=== PATIENT | female | born 1985 | race Caucasian/White ===

== ENCOUNTER → 2020-04-30 | Outpatient (REF) | payer OTHER ==
[~2020-04-30] MED LIST: MAPA500T2 PO; MOTR200T44 PO; STUATAB PO
[2020-04-30 21:56] LABS: APPEARANCE, URINE CLEAR (CLEAR); BACTERIA, URINE AUTO 2+ (NEGATIVE); BILIRUBIN, URINE AUTO NEGATIVE (NEGATIVE); BLOOD, URINE BLOOD 3+ (NEGATIVE); COLOR, URINE RED (YELLOW); GLUCOSE, URINE (UA) AUTO NEGATIVE (NEGATIVE); KETONE, URINE AUTO NEGATIVE (NEGATIVE); LEUKOCYTE ESTERASE, URINE AUTO 3+ (NEGATIVE); NITRITE, URINE AUTO NEGATIVE (NEGATIVE); PROTEIN, URINE AUTO 1+ mg/dL (NEGATIVE); RBC, URINE AUTO 4 /HPF (0-3); SQUAMOUS EPITHELIAL CELL UR AU 0 /HPF (0-6); UROBILINOGEN, URINE AUTO 0.2 mg/dL (0.0-2.0); WBC, URINE AUTO 13 /HPF (0-3)
== END ==
LOC: M LAB REF 21:46
PROVIDERS: ATTEND Physician Assistant Medical
DX: N39.0 Urinary tract infection, site not specified (principal)

== ENCOUNTER → 2021-01-30 | Outpatient (REF) | payer OTHER ==
[2021-01-30 14:00] LABS: HEMOGLOBIN 14.1 g/dl (12.0-15.5); MEAN CORPUSCULAR HEMOGLOBIN 28.4 pg (27.0-33.0); MEAN CORPUSCULAR VOLUME 88.5 fl (80.0-96.0); PLATELET COUNT, AUTOMATED 269 10^3/uL (150-450); RED BLOOD COUNT 4.97 10^6/uL (4.00-5.40); WHITE BLOOD COUNT 9.6 10^3/uL (4.0-10.0)
[2021-01-30 14:21] LABS: HEMOGLOBIN A1c 5.2 %
[2021-01-30 15:11] LABS: HEPATITIS C VIRUS ABY INDEX < 0.0 INDEX (<0.8); HIV 1&2 SCREEN CENTAUR NEGATIVE (NEGATIVE)
== END ==
LOC: M PLALAB 10:20
PROVIDERS: ATTEND Advanced Practice Midwife
DX: Z36.89 Encounter for other specified antenatal screening (principal); Z3A.08 8 weeks gestation of pregnancy

== ENCOUNTER → 2021-04-18 | Outpatient (CLI) | payer OTHER ==
--- NOTE | 2021-04-18 10:25 | REP ---
INDICATION: ANATOMY. COMPARISON: None. TECHNIQUE: Transabdominal obstetric sonography. FINDINGS: Scanning through the gravid uterus demonstrates a viable single intrauterine gestation in transverse lie. motion is observed and heart rate is recorded at 150 beats per minute. A fundal placenta is seen, grade 1, without evidence of placenta previa. Closed cervical length is measured at 4.6 cm transabdominally. No extrauterine abnormality is observed. Amniotic fluid is subjectively normal. No anomaly is seen. The following anatomic structures are identified and felt to be sonographically unremarkable: cranium, choroid plexus, cavum, cerebellum and posterior fossa, face and profile, lungs, diaphragm, left-sided stomach, abdominal wall cord insertion, three-vessel umbilical cord, kidneys and bladder, spine, and upper and lower extremities. The four-chamber heart and outflow tract views are less than optimally achieved due to positioning. Biometry chart: BPD 4.6 cm, 19 weeks 6 days Head circumference 17.1 cm, 19 weeks 5 days Abdominal circumference 14.2 cm, 19 weeks 4 days Femur length 3.0 cm, 19 weeks 2 days Humeral length 3.0 cm, 19 weeks 6 days HC AC ratio normal 1.20 Cephalic index normal 0.74 Estimated weight 294 g, 0 lb 10 oz, 25th percentile for 19 weeks 6 days IMPRESSION: Viable single intrauterine gestation at 19 weeks 5 days by today's composite sonographic criteria. JAMA by today's sonography September 07, 2021. No complication identified. Expected gestational age estimate from known JAMA of 06 September 2021 is 19 weeks 6 days. Four-chamber heart and outflow tract views less than optimally seen. <Electronically signed by Beni Winn > 04/18/21 1027
== END ==
LOC: M WHC 08:26
PROVIDERS: ATTEND Advanced Practice Midwife
DX: Z36.3 Encounter for antenatal screening for malformations (principal); Z3A.19 19 weeks gestation of pregnancy

== ENCOUNTER → 2021-05-28 | Outpatient (CLI) | payer OTHER ==
--- NOTE | 2021-05-28 14:44 | REP ---
INDICATION: F/U ANATOMY HEART COMPARISON: 04/18/2021 TECHNIQUE: Transabdominal obstetrical ultrasound with color Doppler evaluation. FINDINGS: Examination demonstrates a single live intrauterine in breech presentation. motion is identified by technologist. Placenta is noted fundal and grade 2 without evidence for placenta previa or abruption. Amniotic fluid volume is normal. Cervix measures 5.0 cm in length and appears closed.. Selected gestational age: 25 weeks 4 days with JAMA 09/06/2021. Gestational age by current measurements 25 weeks 1 day with JAMA 09/09/2021. FHR equals 134 beats per minute. Estimated weight 749 grams (17thpercentile). Anatomical assessment demonstrates normal structures including four-chamber heart/ventricular outflow tracts. Calcification within the cardiac ventricle likely prominent chordae tendineae. IMPRESSION: Single live intrauterine in breech presentation demonstrating appropriate estimated weight. In conjunction with prior examination anatomical assessment is essentially complete and normal. Prominent chordae tendineae is suspected. <Electronically signed by Emmanuel Turner > 05/28/21 [id number]
== END ==
LOC: M WHC 10:19
PROVIDERS: ATTEND Obstetrics & Gynecology
DX: Z36.89 Encounter for other specified antenatal screening (principal); Z3A.25 25 weeks gestation of pregnancy

== ENCOUNTER → 2021-07-03 | Outpatient (CLI) | payer OTHER, SELFPAY ==
[2021-07-03 15:25] LABS: HEMATOCRIT 37.1 % (36.0-47.0); HEMOGLOBIN 12.2 g/dl (12.0-15.5); MEAN CORPUSCULAR HEMOGLOBIN 29.1 pg (27.0-33.0); MEAN CORPUSCULAR HGB CONC 32.9 g/dl (32.0-36.5); MEAN CORPUSCULAR VOLUME 88.5 fl (80.0-96.0); PLATELET COUNT, AUTOMATED 173 10^3/uL (150-450); RED BLOOD COUNT 4.19 10^6/uL (4.00-5.40); WHITE BLOOD COUNT 12.8 10^3/uL (4.0-10.0)
[2021-07-03 17:15] LABS: GC DNA AMPLIFICATION NEGATIVE (NEGATIVE)
== END ==
LOC: M PLALAB 11:56
PROVIDERS: ATTEND Advanced Practice Midwife
DX: Z34.92 Encounter for supervision of normal pregnancy, unspecified, second trimester (principal); Z3A.25 25 weeks gestation of pregnancy

== ENCOUNTER 2021-07-14 20:07 | Inpatient (IN) | payer OTHER ==
[~2021-07-14] VITALS: Ht 177.8 cm; Wt 113.9 kg
[2021-07-14 20:38] VITALS: BP 178/100
--- OUTSIDE RECORDS SUMMARY | 2021-07-14 20:47 | CCD ---
Author Author [facility] Organization [facility] Address Unknown Phone Unavailable Care Team Providers Care Tooth Clerk Name Role Phone Pietro Kumar Unavailable PROBLEMS Type Condition ICD9-CM Code [id number] Code Onset Dates Condition S tatus W/U Status Risk SNOMED Code Notes Problem Supervision of other normal Z34.80 Ac tive confirm [id number] ALLERGIES Allergen (clinical drug ingredient) Drug/Non Drug Allergy do cumented on EMR Reaction Allergy Type Onset Date Status Sulfasalazine Sulfa Antibiotics Hives Drug Allergy Ac tive ENCOUNTERS from 1985 to 2021-07-02 Encounter Location Date Provider Diagnosis [facility] [address] [place] [address] [place] [address] Jun, Pietro Kumar IMMUNIZATIONS No Information SOCIAL HISTORY Tobacco Use: Social History Observation Description Date Details (start date - stop date) Never Smoker Sex Assigned At : Social History Observation Description Sex Assigned At Unknown Alcohol Screening: Question Answer Notes Did you have a drink containing alcohol in the past year? No Points 0 Interpretation Negative Tobacco Use: Question Answer Notes Are you a: never smoker REASON FOR REFERRAL No Information VITAL SIGNS No information MEDICATIONS Medication SIG (Take, Route, Frequency, Duration) Notes Start Da te End Date Status Pepcid 40 MG 1 tablet at bedtime Orally Once a day for 30 day(s) Jun, Active 28-0.8 MG 1 tablet Orally Once a day Active PROCEDURES No Information RESULTS No Results REASON FOR VISIT appt MEDICAL (GENERAL) HISTORY Type Description Date Hospitalization History Childbirth Goals Section No Information Health Concerns No Information MEDICAL EQUIPMENT No Information MENTAL STATUS No Information FUNCTIONAL STATUS No Information ASSESSMENTS No Information PLAN OF TREATMENT Medication Medication Name Sig Start Date Stop Date Pepcid 40 MG 1 tablet at bedtime Orally Once a day for 30 day (s) Jun, Next Appt Details Provider Name:Latesha Mcfadden, 2021-07-16 0 9:40:00 AM, [address] [facility], , [place], [address], Insurance Providers Payer Name Payer Address Payer Phone Insured Name Patient Relati onship to Insured Coverage Start Date Coverage End Date [facility] COMMUNITY PLAN [facility] [address] [facility] [address] [phone] MARIA L HERNANDEZ self
--- OUTSIDE RECORDS SUMMARY | 2021-07-14 20:47 | CCD ---
Author Author [facility] Organization [facility] [employer] [facility] Address Unknown Phone Unavailable Care Team Providers Care Genetics Physician Name Role Phone Pietro Kumar Unavailable PROBLEMS Type Condition ICD9-CM Code [id number] Code Onset Dates Condition S tatus W/U Status Risk SNOMED Code Notes Problem Supervision of other normal Z34.80 Ac tive confirm [id number] ALLERGIES Allergen (clinical drug ingredient) Drug/Non Drug Allergy do cumented on EMR Reaction Allergy Type Onset Date Status Sulfasalazine Sulfa Antibiotics Hives Drug Allergy Ac tive ENCOUNTERS from 1985 to 2021-07-12 Encounter Location Date Provider Diagnosis [facility] [address] [place] [address] [place] [address] Jun, Pietro Kumar Encounter for superv ision of other normal in third trimester Z34.83 and 30 weeks gestation of Z3A.30 IMMUNIZATIONS No Information SOCIAL HISTORY Tobacco Use: [...] REASON FOR REFERRAL No Information VITAL SIGNS Weight 236.4 lbs Jun, Height 69 in Jun, BMI 34.91 kg/m2 Jun, Blood pressure systolic 118 mm Hg Jun, Blood pressure diastolic 76 mm Hg Jun, MEDICATIONS Medication SIG (Take, Route, Frequency, Duration) Notes Start Da te End Date Status Pepcid 40 MG 1 tablet at bedtime Orally Once a day for 30 day(s) Jun, Active 28-0.8 MG 1 tablet Orally Once a day Active PROCEDURES No Information RESULTS No Results REASON FOR VISIT 4 WK PN MEDICAL (GENERAL) HISTORY Type Description Date Hospitalization History Childbirth Goals Section No Information Health Concerns No Information MEDICAL EQUIPMENT No Information MENTAL STATUS No Information FUNCTIONAL STATUS No Information ASSESSMENTS Encounter Date Diagnosis Assessment Notes Treatment Notes Treatm ent Clinical Notes Jun, 30 weeks gestation of (ICD-10 - Z3A.30 ) Jun, Encounter for supervision of other normal in third trimester (ICD-10 - Z34.83) PLAN OF TREATMENT Medication Medication Name Sig Start Date Stop Date Pepcid 40 MG 1 tablet at bedtime Orally Once a day for 30 day (s) Jun, Next Appt Details Provider Name:Latesha Mcfadden, 2021-07-16 0 9:40:00 AM, [address] [facility], , [place], [address], Insurance Providers Payer Name Payer Address Payer Phone Insured Name Patient Relati onship to Insured Coverage Start Date Coverage End Date [facility] COMMUNITY PLAN [facility] [address] [facility] [phone] MARIA L HERNANDEZ self
--- OUTSIDE RECORDS SUMMARY | 2021-07-14 20:47 | CCD ---
Author Author [employer] [facility] Organization [facility] Address Unknown Phone Unavailable Care Team Providers Care Shopper Name Role Phone Talia Boyd Unavailable PROBLEMS Type Condition ICD9-CM Code [id number] Code Onset Dates Condition S tatus W/U Status Risk SNOMED Code Notes Problem Supervision of other normal Z34.80 Ac tive confirm [id number] ALLERGIES Allergen (clinical drug ingredient) Drug/Non Drug Allergy do cumented on EMR Reaction Allergy Type Onset Date Status Sulfa Hives Non Drug Allergy Active ENCOUNTERS from 1985 to 2021-04-19 Encounter Location Date Provider Diagnosis [facility] [address] [place] [address] [place] [id number] Apr, [facility] IMMUNIZATIONS No Information SOCIAL HISTORY Tobacco Use: Social History Observation Description Date Details (start date - stop date) Never Smoker Sex Assigned At : Social History Observation Description Sex Assigned At Unknown Tobacco Use: Question Answer Notes Are you a: never smoker REASON FOR REFERRAL No Information VITAL SIGNS No information MEDICATIONS Medication SIG (Take, Route, Frequency, Duration) Notes Start Da te End Date Status 28-0.8 MG 1 tablet Orally Once a day Active PROCEDURES No Information RESULTS No Results REASON FOR VISIT note Goals Section No Information Health Concerns No Information MEDICAL EQUIPMENT No Information MENTAL STATUS No Information FUNCTIONAL STATUS No Information ASSESSMENTS No Information PLAN OF TREATMENT Next Appt Details Provider Name:Анна Cadet, 2021-04-11 1 09:30:00 AM, [address] [facility], , [place], [address], Insurance Providers Payer Name Payer Address Payer Phone Insured Name Patient Relati onship to Insured Coverage Start Date Coverage End Date [facility] COMMUNITY PLAN [facility] [address] [facility] [phone] MARIA L HERNANDEZ self
--- OUTSIDE RECORDS SUMMARY | 2021-07-14 20:47 | CCD ---
Author Author [employer] [facility] Organization [employer] [facility] Address Unknown Phone Unavailable Care Team Providers Care Rn Orthopaedic Name Role Phone Talia Boyd Unavailable PROBLEMS Type Condition ICD9-CM Code NHT22-AM Code Onset Dates Condition S tatus W/U Status Risk SNOMED Code Notes Problem Supervision of other normal Z34.80 Ac tive confirm [id number] ALLERGIES Allergen (clinical drug ingredient) Drug/Non Drug Allergy do cumented on EMR Reaction Allergy Type Onset Date Status Sulfasalazine Sulfa Antibiotics Hives Drug Allergy Ac tive ENCOUNTERS from 1985 to 2021-05-30 Encounter Location Date Provider Diagnosis [facility] [address] [place] [address] [place] [address] May, Talia Boyd 25 weeks gestatio n of Z3A.25 and Elderly multigravida in second trimester O09.522 IMMUNIZATIONS No Information SOCIAL HISTORY Tobacco Use: Social History Observation Description Date Details (start date - stop date) Never Smoker Sex Assigned At : Social History Observation Description Sex Assigned At Unknown Tobacco Use: Question Answer Notes Are you a: never smoker REASON FOR REFERRAL No Information VITAL SIGNS Weight 220 lbs May, Weight-kg 99.79 kg May, Height 69 in May, BMI 32.488 kg/m2 May, Blood pressure systolic 120 mm Hg May, Blood pressure diastolic 70 mm Hg May, MEDICATIONS Medication SIG (Take, Route, Frequency, Duration) Notes Start Da te End Date Status 28-0.8 MG 1 tablet Orally Once a day Active PROCEDURES No Information RESULTS No Results REASON FOR VISIT 4 WK PN Goals Section No Information Health Concerns No Information MEDICAL EQUIPMENT No Information MENTAL STATUS No Information FUNCTIONAL STATUS No Information ASSESSMENTS Encounter Date Diagnosis Assessment Notes Treatment Notes Treatm ent Clinical Notes May, 25 weeks gestation of (ICD-10 - Z3A.25 ) May, Elderly multigravida in second trimester (ICD-10 - O09.522) PLAN OF TREATMENT Treatment Notes Test Name Order Date CBC - Complete Blood Count 2021-05-28 Type and Screen (D Rh Antibody Screen) 2021-05-28 Glucose Challenge Test 1 Hour 2021-05-28 AB SCREEN (INDIRECT UZMA)GEL Antibody Screen 2021-05 CHLAMYDIA & GC DNA AMPLIFICAT 2021-05-28 Next Appt Details 3-4 wks Reason:- Routine follow up Provider Name:Анна Sorensenyosvany, 2021-06-10 1 10:00:00 AM, [address] [facility], , [place], [address], Follow Up:3-4 wks- Routine follow up Insurance Providers Payer Name Payer Address Payer Phone Insured Name Patient Relati onship to Insured Coverage Start Date Coverage End Date [facility] COMMUNITY PLAN [facility] [address] [facility] [phone] MARIA L HERNANDEZ self
--- OUTSIDE RECORDS SUMMARY | 2021-07-14 20:47 | CCD ---
Author Author [facility] Organization [employer] [facility] [facility] Address Unknown Phone Unavailable Care Team Providers Care Security Systems Administrator Name Role Phone Talia Boyd Unavailable PROBLEMS Type Condition ICD9-CM Code FYE89-LO Code Onset Dates Condition S tatus W/U Status Risk SNOMED Code Notes Problem Supervision of other normal Z34.80 Ac tive confirm [id number] ALLERGIES Allergen (clinical drug ingredient) Drug/Non Drug Allergy do cumented on EMR Reaction Allergy Type Onset Date Status Sulfa Hives Non Drug Allergy Active ENCOUNTERS from 1985 to 2021-05-21 Encounter Location Date Provider Diagnosis [facility] [address] [place] [address] [place] [address] Mar, Talia Boyd 16 weeks gestatio n of Z3A.16 and Elderly multigravida in second trimester O09.522 IMMUNIZATIONS No Information SOCIAL HISTORY Tobacco Use: Social History Observation Description Date Details (start date - stop date) Never Smoker Sex Assigned At : Social History Observation Description Sex Assigned At Unknown Tobacco Use: Question Answer Notes Are you a: never smoker REASON FOR REFERRAL No Information VITAL SIGNS Weight 210 lbs Mar, Weight-kg 95.25 kg Mar, Height 69 in Mar, BMI 31.012 kg/m2 Mar, Blood pressure systolic 110 mm Hg Mar, Blood pressure diastolic 62 mm Hg Mar, MEDICATIONS Medication SIG (Take, Route, Frequency, Duration) Notes Start Da te End Date Status 28-0.8 MG 1 tablet Orally Once a day Active PROCEDURES No Information RESULTS Component Value Reference Range WWBC OBS COMPLETE US Reviewed date:05/17/2021 07:04:14 Interpretation: Performing Lab:[facility],[address]], ,[place] [address] REASON FOR VISIT 4 wk pn Goals Section No Information Health Concerns No Information MEDICAL EQUIPMENT No Information MENTAL STATUS No Information FUNCTIONAL STATUS No Information ASSESSMENTS Encounter Date Diagnosis Assessment Notes Treatment Notes Treatm ent Clinical Notes Mar, 16 weeks gestation of (ICD-10 - Z3A.16 ) Mar, Elderly multigravida in second trimester (ICD-10 - O09.522) PLAN OF TREATMENT Next Appt Details 4 Weeks Reason:- Routine follow up Provider Name:Talia Boyd, 2021-05-28 09:00:00 AM, [address] [facility], , [place], [address], Follow Up:4 Weeks- Routine follow up Insurance Providers Payer Name Payer Address Payer Phone Insured Name Patient Relati onship to Insured Coverage Start Date Coverage End Date [facility] COMMUNITY PLAN [facility] [address] [facility] [phone] MARIA L HERNANDEZ self
--- OUTSIDE RECORDS SUMMARY | 2021-07-14 20:47 | CCD ---
Author Author [employer] Organization [employer] [facility] Address Unknown Phone Unavailable Care Team Providers Care Public Safety Teacher Name Role Phone Анна Cadet Unavailable PROBLEMS Type Condition ICD9-CM Code LPM14-SK Code Onset Dates Condition S tatus W/U Status Risk SNOMED Code Notes Problem Supervision of other normal Z34.80 Ac tive confirm [id number] ALLERGIES Allergen (clinical drug ingredient) Drug/Non Drug Allergy do cumented on EMR Reaction Allergy Type Onset Date Status Sulfa Hives Non Drug Allergy Active ENCOUNTERS from 1985 to 2021-05-15 Encounter Location Date Provider Diagnosis [facility] [address] [place] [address] [place] [address] Apr, Анна Cadet Elderly multigravida in second trimester O09.522 and 21 weeks gestation of Z3A.21 IMMUNIZATIONS No Information SOCIAL HISTORY Tobacco Use: Social History Observation Description Date Details (start date - stop date) Never Smoker Sex Assigned At : Social History Observation Description Sex Assigned At Unknown Tobacco Use: Question Answer Notes Are you a: never smoker REASON FOR REFERRAL No Information VITAL SIGNS Weight 219 lbs Apr, Weight-kg 99.34 kg Apr, Height 69 in Apr, BMI 32.341 kg/m2 Apr, Blood pressure systolic 122 mm Hg Apr, Blood pressure diastolic 74 mm Hg Apr, MEDICATIONS Medication SIG (Take, Route, Frequency, Duration) Notes Start Da te End Date Status 28-0.8 MG 1 tablet Orally Once a day Active PROCEDURES No Information RESULTS No Results REASON FOR VISIT 4 wk pn Goals Section No Information Health Concerns No Information MEDICAL EQUIPMENT No Information MENTAL STATUS No Information FUNCTIONAL STATUS No Information ASSESSMENTS Encounter Date Diagnosis Assessment Notes Treatment Notes Treatm ent Clinical Notes Apr, Elderly multigravida in second trimester (ICD-10 - O09.522) Apr, 21 weeks gestation of (ICD-10 - Z3A.21 ) PLAN OF TREATMENT Treatment Notes Test Name Order Date WWBC OBS FOLLOW UP OR REPEAT 2021-04-30 Next Appt Details 4 Weeks Reason:Routine Provider Name:Talia Wheatleyronald, 2021-05-28 09:00:00 AM, [address] [facility], , [place], [address], Follow Up:4 WeeksRoutine Insurance Providers Payer Name Payer Address Payer Phone Insured Name Patient Relati onship to Insured Coverage Start Date Coverage End Date [facility] COMMUNITY PLAN [facility] [address] [facility] [phone] MARIA L HERNANDEZ self
--- OUTSIDE RECORDS SUMMARY | 2021-07-14 20:48 | CCD ---
Author Author [facility] Organization [facility] Address Unknown Phone Unavailable Support Name Relationship Address Phone SELF Next Of Kin Unknown Unavailable SALDANA THEODORA Next Of Kin [address] [facility] [address] [place] [address] LOW Next Of Kin [address] [facility] [address] [place] [address] BRODIE HERNANDEZ Next Of Kin [address] [facility] [address] [place] [address] SHANAYETHEODORA ECON [address] [facility] [address] [place] [address] Unavailable Re-disclosure Warning The records that you are about to access may contain information from federally-assisted alcohol or drug abuse programs. If such information is present, then the following federally mandated warning applies: This information has been disclosed to you from records protected by federal confidentiality rules (42 CFR part 2). The federal rules prohibit you from making any further disclosure of this information unless further disclosure is expressly permitted by the written consent of the person to whom it pertains or as otherwise permitted by 42 CFR part 2. A general authorization for the release of medical or other information is NOT sufficient for this purpose. The Federal rules restrict any use of the information to criminally investigate or prosecute any alcohol or drug abuse patient.The records that you are about to access may contain highly sensitive health information, the redisclosure of which is protected by Article 27-F of the [facility] Public Health law. If you continue you may have access to information: Regarding HIV / AIDS; Provided by facilities licensed or operated by the [facility] Office of Mental Health; or Provided by the [facility] Office for People With Developmental Disabilities. If such information is present, then the following [facility] mandated warning applies: This information has been disclosed to you from confidential records which are protected by state law. State law prohibits you from making any further disclosure of this information without the specific written consent of the person to whom it pertains, or as otherwise permitted by law. Any unauthorized further disclosure in violation of state law may result in a fine or correction sentence or both. A general authorization for the release of medical or other information is NOT sufficient authorization for further disc losure. Encounters Encounter Providers Location Date Indications Data Source(s ) ( ESTOB) [facility] Est OB [address] [place] [address] 07/01/2021 12:00:00 AM EST eCW1 ([facility]) Unknown [address] [facility] [address] 07/01/2021 12:00:00 AM EST eCW1 ([facility]) ( ESTOB) [facility] Est [facility] [address] [place] [address] 05/28/2021 12:00:00 AM EDT eCW1 ([facility]) ( ESTOB) [facility] Est [address] [place] [address] 04/30/2021 12:00:00 AM EDT eCW1 ([facility]) Unknown [address] [facility] [address] 04/19/2021 12:00:00 AM EDT eCW1 ([facility]) ( ESTOB) [facility] Est OB [address] [place] [address] 03/28/2021 12:00:00 AM EDT eCW1 ([facility]) ( ESTOB) [facility] Est OB [address] [place] [address] 02/28/2021 12:00:00 AM EDT eCW1 ([facility]) ( NEWOB) [facility] New OB Visit [address] [place] [address] 01/30/2021 12:00:00 AM EDT eCW1 ([facility]) Immunizations Vaccine Date Status Description Data Source(s) COVID-19 VACC, MRNA(PFIZER)/PF 01/16/2021 12:00:00 AM EDT completed [facility] COVID-19 VACCINE Pfizer 01/16/2021 12:00:00 AM EDT completed [facility] Vaccine Series Complete: YESThis Data wa s Submitted to [facility] Via [employer]. COVID-19 VACC, MRNA(PFIZER)/PF 12/26/2020 12:00:00 AM EDT completed [facility] COVID-19 VACCINE Pfizer 12/26/2020 12:00:00 AM EDT completed [facility] Vaccine Series Complete: NOThis Data was Submitted to [facility] Via [employer]. Medications Medication Brand Name Start Date Product Form Dose Route Admi nistrative Instructions Pharmacy Instructions Status Indications Reaction Description Data Source(s) Famotidine 40 MG Oral Tablet [Pepcid] Pepcid 40 MG Pepcid 40 MG 07/01/2021 12:00:00 AM EST 1.0 {tablet_at_bedtime} active Pepcid 40 MG eCW1 ([facility]) Famotidine 40 MG Oral Tablet [Pepcid] Pepcid 40 MG Pepcid 40 MG 07/01/2021 12:00:00 AM EST 1.0 {tablet_at_bedtime} active Pepcid 40 MG eCW1 ([facility]) Famotidine 40 MG Oral Tablet FAMOTIDINE 07/01/2021 12:00:00 AM EST tab let 30 TAKE ONE TABLET BY MOUTH AT BEDTIME TAKE ONE TABLET BY MOUTH AT BEDTIME SOLD: 07/01/2021 [facility] Insurance Providers Payer name Policy type / Coverage type Policy ID Covered democrat ID Covered democrat's relationship to cartagena Policy [place] Plan Information [facility] [id number] SP [id number] SELF PAY ONLY [id number] SP [id number] [facility] [id number] SP [id number] [facility] [id number] SP [id number] [facility] [id number] SP [id number] [facility] [id number] SP [id number] [facility] [id number] SP [id number] Problems, Conditions, and Diagnoses Code Display Name Description Problem Type Effective Dates Data Source(s) Z34.80 care Supervision of other normal Rios greer 01/30/2021 12:00:00 AM EDT eCW1 ([facility]) Surgeries/Procedures No Information Results ID Date Data Source WWBC OBS COMPLETE US 04/18/2021 12:00:00 AM EDT eCW1 ([facility]) Name Value Range Interpretation Code Description Data Valerie rce(s) Supporting Document(s) WWBC OBS COMPLETE US eCW1 ([facility]) ID Date Data Source HBSAG 01/30/2021 12:00:00 AM EDT eCW1 ([facility]) Name Value Range Interpretation Code Description Data Valerie rce(s) Supporting Document(s) NEGATIVE NEGATIVE HBsAg eCW1 ([facility]) ID Date Data Source URINE CULTURE 01/30/2021 12:00:00 AM EDT eCW1 ([facility]) Name Value Range Interpretation Code Description Data Valerie rce(s) Supporting Document(s) URINE CULTURE eCW1 ([facility]) ID Date Data Source RUBELLA IMMUNE STATUS IgG 01/30/2021 12:00:00 AM EDT eCW1 ([facility]) Name Value Range Interpretation Code Description Data Valerie rce(s) Supporting Document(s) IMMUNE IMMUNE RUBELLA IgG QUALITATIVE eCW1 ( [facility]) ID Date Data Source SYPHILIS ANTIBODY (RPR SCREEN) 01/30/2021 12:00:00 AM EDT eC W1 ([facility]) Name Value Range Interpretation Code Description Data Valerie rce(s) Supporting Document(s) NONREACTIVE NONREACTIVE SYPHILIS eCW1 ([facility]) ID Date Data Source [id number] 01/30/2021 12:00:00 AM EDT eCW1 ([facility]) Name Value Range Interpretation Code Description Data Valerie rce(s) Supporting Document(s) HIV 1&2 ANTIBODY SCREEN eCW1 ( [facility]) ID Date Data Source [id number] 01/30/2021 12:00:00 AM EDT eCW1 ([facility]) Name Value Range Interpretation Code Description Data Valerie rce(s) Supporting Document(s) Hemoglobin A1c/Hemoglobin.total in Blood 5.2 HEMOGLOBIN A1c eCW1 ([facility]) ID Date Data Source HEPATITIS C ANTIBODY INDEX 01/30/2021 12:00:00 AM EDT eCW1 ( [facility]) Name Value Range Interpretation Code Description Data Valerie rce(s) Supporting Document(s) < 0.0 <0.8 HEPATITIS C VIRUS SELINA IND EX eCW1 ([facility]) ID Date Data Source CBC - Complete Blood Count 01/30/2021 12:00:00 AM EDT eCW1 ( [facility]) Name Value Range Interpretation Code Description Data Valerie rce(s) Supporting Document(s) 4.97 4.00-5.40 RED BLOOD COUNT eCW1 (On license of [facility]) 9.6 4.0-10.0 WHITE BLOOD COUNT eCW1 ([facility]) 14.1 12.0-15.5 HEMOGLOBIN eCW1 ([facility]) 32.0 32.0-36.5 MEAN CORPUSCULAR HGB CONC eCW1 ([facility]) 28.4 27.0-33.0 MEAN CORPUSCULAR HEMOGLOB IN eCW1 ([facility]) 88.5 80.0-96.0 MEAN CORPUSCULAR VOLUME e CW1 ([facility]) 44.0 36.0-47.0 HEMATOCRIT eCW1 ([facility]) 269 150-450 PLATELET COUNT, AUTOMATED eCW1 ([facility]) 12.5 11.5-14.5 RED CELL DISTRIBUTION WID TH eCW1 ([facility]) ID Date Data Source Type and Screen Prenatal1 01/30/2021 12:00:00 AM EDT eCW1 ([facility]) Name Value Range Interpretation Code Description Data Valerie rce(s) Supporting Document(s) NEGATIVE AB SCREEN PNP1 GEL (VIS) eCW1 ([facility]) ID Date Data Source [id number] 08/17/2020 12:00:00 AM EST [facility] Name Value Range Interpretation Code Description Data Valerie rce(s) Supporting Document(s) SARS coronavirus 2 RNA [Presence] in Res piratory specimen by MARTIN with probe detection NEGATIVE [facility] and reported by [facility]. ID Date Data Source [id number] 08/17/2020 12:00:00 AM EST [facility] Name Value Range Interpretation Code Description Data Valerie rce(s) Supporting Document(s) Carestart Rapid COVID Antigen Test Negative [facility] This lab was reported by Fredi hebert. Procedure Social History Code Duration Value Status Description Data Source(s ) Smoking 07/01/2021 12:00:00 AM EST Never Smoker completed Never S moker eCW1 ([facility]) Smoking 07/01/2021 12:00:00 AM EST Never Smoker completed Never S moker eCW1 ([facility]) Smoking 05/29/2021 12:00:00 AM EDT Never Smoker completed Never S moker eCW1 ([facility]) Smoking 05/17/2021 12:00:00 AM EDT Never Smoker completed Never S moker eCW1 ([facility]) Smoking 04/25/2021 12:00:00 AM EDT Never Smoker completed Never S moker eCW1 ([facility]) Smoking 03/28/2021 12:00:00 AM EDT Never Smoker completed Never S moker eCW1 ([facility]) Smoking 02/27/2021 12:00:00 AM EDT Never Smoker completed Never S moker eCW1 ([facility]) Smoking 01/30/2021 12:00:00 AM EDT Never Smoker completed Never S moker eCW1 ([facility]) Vital Signs ID Date Data Source UNK Name Value Range Interpretation Code Description Data Source(s) Body weight 236.4 [lb_av] 236.4 [lb_av] eCW1 ([facility]) Body height 69 [in_i] 69 [in_i] W1 ([facility]) Body mass index (BMI) [Ratio] 34.91 kg/m2 34.91 kg/m2 [facility] ([facility]) Systolic blood pressure 118 mm[Hg] 118 mm[Hg] e CW1 ([facility]) Diastolic blood pressure 76 mm[Hg] 76 mm[Hg] W1 ([facility]) Body weight 220 [lb_av] 220 [lb_av] eCW1 ([facility]) Body weight 99.79 kg 99.79 kg eCW1 ([facility]) Body height 69 [in_i] 69 [in_i] eCW1 ([facility]) Body mass index (BMI) [Ratio] 32.488 kg/m2 32.4 88 kg/m2 eCW1 ([facility]) Systolic blood pressure 120 mm[Hg] 120 mm[Hg] e CW1 ([facility]) Diastolic blood pressure 70 mm[Hg] 70 mm[Hg] eCW1 ([facility]) Body weight 219 [lb_av] 219 [lb_av] eCW1 ([facility]) Body weight 99.34 kg 99.34 kg eCW1 ([facility]) Body height 69 [in_i] 69 [in_i] eCW1 ([facility]) Body mass index (BMI) [Ratio] 32.341 kg/m2 32.3 41 kg/m2 eCW1 ([facility]) Systolic blood pressure 122 mm[Hg] 122 mm[Hg] e CW1 ([facility]) Diastolic blood pressure 74 mm[Hg] 74 mm[Hg] eCW1 ([facility]) Body weight 210 [lb_av] 210 [lb_av] eCW1 ([facility]) Body weight 95.25 kg 95.25 kg eCW1 ([facility]) Body height 69 [in_i] 69 [in_i] eCW1 ([facility]) Body mass index (BMI) [Ratio] 31.012 kg/m2 31.0 12 kg/m2 eCW1 ([facility]) Systolic blood pressure 110 mm[Hg] 110 mm[Hg] e CW1 ([facility]) Diastolic blood pressure 62 mm[Hg] 62 mm[Hg] eCW1 ([facility]) Body weight 206.8 [lb_av] 206.8 [lb_av] eCW1 ([facility]) Body weight 93.8 kg 93.8 kg eCW1 ([facility]) Body height 69 [in_i] 69 [in_i] eCW1 ([facility]) Body mass index (BMI) [Ratio] 30.539 kg/m2 30.5 39 kg/m2 eCW1 ([facility]) Systolic blood pressure 110 mm[Hg] 110 mm[Hg] e CW1 ([facility]) Diastolic blood pressure 68 mm[Hg] 68 mm[Hg] eCW1 ([facility]) Body weight 203.6 [lb_av] 203.6 [lb_av] eCW1 ([facility]) Body weight 92.35 kg 92.35 kg eCW1 ([facility]) Body height 69 [in_i] 69 [in_i] eCW1 ([facility]) Body mass index (BMI) [Ratio] 30.066 kg/m2 30.0 66 kg/m2 eCW1 ([facility]) Systolic blood pressure 108 mm[Hg] 108 mm[Hg] e CW1 ([facility]) Diastolic blood pressure 64 mm[Hg] 64 mm[Hg] eCW1 ([facility]) Patient Treatment Plan of Care Planned Activity Planned Date Details Description Data Source (s) Famotidine 40 MG Oral Tablet [Pepcid] 07/01/2021 12:00:00 AM EST eCW1 ([facility]) Famotidine 40 MG Oral Tablet [Pepcid] 07/01/2021 12:00:00 AM EST eCW1 ([facility])
[2021-07-14 21:00] VITALS: BP 178/100
[2021-07-14 21:15] VITALS: BP 196/99
[2021-07-14 21:43] LABS: HEMOGLOBIN 11.5 g/dl (12.0-15.5); MEAN CORPUSCULAR HGB CONC 33.8 g/dl (32.0-36.5); MEAN CORPUSCULAR VOLUME 85.9 fl (80.0-96.0); RED BLOOD COUNT 3.96 10^6/uL (4.00-5.40)
[2021-07-14 21:45] VITALS: BP 199/95
[2021-07-14 22:00] VITALS: BP 189/89
[2021-07-14 22:00] LABS: PLATELET COUNT, AUTOMATED 50 10^3/uL (150-450)
[2021-07-14] MEDS ORDERED: LABETALOL 100MG/20ML VIAL IV STA ×2 (22:19→22:56)
[2021-07-14 22:21] LABS: ALT/SGPT 166 U/L (12-78); BILIRUBIN,TOTAL 0.8 MG/DL (0.2-1.0); CREATININE FOR GFR 1.04 MG/DL (0.55-1.30); GLOMERULAR FILTRATION RATE > 60.0 (>60); LDH LACTATE DEHYDROGENASE 400 U/L (84-246); URIC ACID 7.3 MG/DL (2.6-6.0)
[2021-07-14] MEDS ORDERED: LR 500 ML IV ONE (22:40)
[2021-07-14] MEDS ORDERED: ROCURONIUM BROMIDE 50 MG/5 ML VIAL As Ordered ONE (22:54)
[2021-07-14] MEDS ORDERED: LIDOCAINE 2% 100MG/5ML SDV (FOR ANES.) As Ordered ONE (22:54)
[2021-07-14] MEDS ORDERED: SUCCINYLCHOLINE 100 MG/5 ML SYRINGE (J0330) As Ordered ONE (22:54)
[2021-07-14] MEDS ORDERED: MIDAZOLAM INJ 2MG/2ML VIAL (J2250 PER 1MG) As Ordered ONE (22:54)
[2021-07-14] MEDS ORDERED: fentaNYL 100 MCG/2 ML INJECTION (J3010) As Ordered ONE (22:54)
[2021-07-14] MEDS ORDERED: propofoL 200 MG/20 ML VIAL As Ordered ONE ×2 (22:54→23:50)
[2021-07-14] MEDS ORDERED: LACTATED RINGER'S 1000 ML IV STA (23:04)
[2021-07-14] MEDS ORDERED: ceFAZolin SOD 2 GM in IV 1 EA IV ONE (23:05)
[2021-07-14] MEDS ORDERED: LR 1,000 ML IV SCH (23:05)
[2021-07-14] MEDS ORDERED: ONDANSETRON 4MG/2ML VIAL As Ordered ONE (23:43)
[2021-07-14] MEDS ORDERED: ACETAMINOPHEN 1000MG 100ML IV BTL (OFIRMEV) (J0131 PER 10MG) As Ordered ONE (23:43)
[2021-07-14] MEDS ORDERED: METOCLOPRAMIDE INJ 10MG/2ML VIAL (J2765 PER 1) As Ordered ONE (23:50)
[2021-07-14] MEDS ORDERED: SUGAMMADEX SODIUM 500 MG/5 ML VIAL (BRIDION) As Ordered ONE (23:51)
[2021-07-14] MEDS ORDERED: OXYTOCIN INJ 10 UNITS/ML VIAL (J2590) As Ordered ONE (23:54)
[2021-07-15] VITALS (41 sets, daily range): BP systolic 125–165; BP diastolic 67–95
[2021-07-15] MEDS ORDERED: MAGNESIUM *L&D* 4GM/100ML BAG (40MG/ML) As Ordered ONE (00:09)
[2021-07-15] MEDS ORDERED: MORPHINE 2 MG/ML 1ML VIAL (J2270) IV PRN (00:35)
[2021-07-15] MEDS ORDERED: ONDANSETRON 4MG/2ML VIAL IV PRN ×3 (00:35→01:25)
[2021-07-15] MEDS ORDERED: RHOGAM 300 MCG (1500 IU) INJ (J2790) IM SCH (00:35)
[2021-07-15] MEDS ORDERED: SIMETHICONE 80MG CHEW TAB PO PRN (00:35)
[2021-07-15] MEDS ORDERED: OXYTOCIN DRIP 30 UNITS in IV 1 EA IV SCH (00:35)
[2021-07-15] MEDS ORDERED: MEASLES,MUMPS,RUBELLA VACCINE INJ (MMR-II) (90707) SC SCH (00:35)
[2021-07-15] MEDS ORDERED: DOCUSATE SODIUM 100MG CAPSULE PO PRN (00:35)
[2021-07-15] MEDS ORDERED: MAG Sulf (L&D) 4 GM/100 ML 4 GM in IV 1 EA IV ONE (00:40)
[2021-07-15 01:02] LABS: CORD GAS ABE A -1.7; CORD GAS HCO3 V 21.6 MEQ/L; CORD GAS O2 SAT A 31.5 %; CORD GAS O2 SAT V 61.2 %; CORD GAS PCO2 A 49.2 mmHg; CORD GAS PCO2 V 41.7 mmHg; CORD GAS PH A 7.323 UNITS; CORD GAS PH V 7.333 UNITS; CORD GAS PO2 A 15.6 mmHg; CORD GAS SBC A 21.5 MEQ/L; CORD GAS SBC V 20.3 MEQ/L; CORD GAS TCO2 A 26.5 MEQ/L; CORD GAS TCO2 V 22.9 MEQ/L
[2021-07-15] MEDS ORDERED: LR 1,000 ML IV SCH ×2 (01:25→17:50)
[2021-07-15] MEDS ORDERED: fentaNYL 100 MCG/2 ML INJECTION (J3010) IV PRN (01:25)
--- NOTE | 2021-07-15 01:33 | HPEPDOC ---
Obstetrical History & Physical General Date of Admission Jul 14, 2021 at 20:43 History of Present Illness 35 yo female at 32 2/7 weeks gestation by LMP c/w 9 week ultrasound (EDC=09/06/2020) presents to triage with generalized swelling in her hands, feet, and face for the past 2 days. She developed a severe headache over the last 24 hours that became worse. Headache did not respond to Tylenol. She also had vision changes including seeing spots in front of her eyes. Information Provided By: Patient Age: 35 : 5 Term: 2 Pre-term: 0 Abortions: 2 Livin Care Care: Good Care Dating Final EDC: Sep 06, 2021 Final EDC by: LMP, 1st trimester (US) Past Medical History Past Obstetrical History : Past Obstetrical History: Multigravida Past Medical History Medical History Ob Hx: 1 04/18/2013 37 2 days 6 9 Male NVD Epidural [facility] 2 05/13/2014 36 28 hours 7 10 Male NVD Epidural [facility] Med Hx: none surgical Hx: none Family History Significant Family History: No pertinent family hx Social History Marital Status: Other (engaged) Family situation: Spouse/partner home Psychosocial History: No pertinent psych hx * Smoker: non-smoker Drugs: denies Allergies Coded Allergies: Sulfa (Sulfonamide Antibiotics) (Verified Allergy, Mild, HIVES, 07/14/21) Medications Scheduled Multivit/Min/Pren/Fol Ac/Iron (Mendoza 28-0.8 mg) 1 Tab Tab, 1 TAB PO DAILY Scheduled PRN Acetaminophen (Mapap) 500 Mg Tab, 1,000 MG PO Q6HP PRN for PAIN SCALE 6-10 Ibuprofen (Motrin Ib) 200 Mg Tab, 600 MG PO Q6HP PRN for PAIN SCALE 6-10 Physical Examination Physical Examination GENERAL: Alert and oriented times three. BREAST: . ABDOMEN: Gravid and non-tender to touch. FETUS: Is vertex (VTX) by sterile vaginal examination (SVE), fetus is vertex (VTX) by Ronny. HEART RATE: Regular rate and rhythm. LUNGS: Clear to auscultation (CTA). EXTREMITIES: No edema. No clonus. Deep tendon reflexes (DTRs) + . Vital Signs/I&O Vital Signs Date Time Temp Pulse Resp B/P (MAP) Pulse Ox O2 Delivery O2 Flow Rate FiO2 07/15/21 01:10 16 98 Room Air 07/15/21 01:10 62 159/93 (115) 07/15/21 00:35 10.0 07/15/21 00:35 98.6 I&O- Last 24 Hours up to 6 AM 07/15/21 05:59 Intake Total 2420 ml Output Total 800 ml Balance 1620 ml Laboratory Data 24H LABS Laboratory Tests 2 07/14/21 20:40: Urine Random Creatinine 270.0, Urine Random Total Protein 5304.0H 07/14/21 21:09: Serology Scanned Report Hepatitis B Testing 07/14/21 21:34: Nucleated Red Blood Cells % (auto) 0.2H, Immature Platelet Fraction 16.4H, Glomerular Filtration Rate > 60.0, Uric Acid 7.3H, Total Bilirubin 0.8, Aspartate Amino Transf (AST/SGOT) 149H, Alanine Aminotransferase (ALT/SGPT) 166 H, Lactate Dehydrogenase 400H 07/14/21 21:50: Coronavirus (COVID-19)(PCR) NEGATIVE 07/14/21 23:32: Cord Arterial Blood pH 7.323, Cord Arterial Blood PCO2 49.2, Cord Arterial Blood PO2 15.6, Cord Arterial Blood HCO3 25.0, Cord Arterial Blood Total CO2 26.5, Co rd Arterial Blood Base Excess -1.7, Cord Arterial Base Excess (Standard 21.5, Cord Arterial Bld Oxygen Saturation 31.5, Cord Venous Blood pH 7.333, Cord Venous Blood PCO2 41.7, Cord Venous Blood PO2 25.0, Cord Venous Blood HCO3 21.6, Cord Venous Blood Total CO2 22.9, Cord Venous Base Excess (Actual) -4.0, Cord Venous Base Excess (Standard) 20.3, Cord Venous Blood Oxygen Saturation 61.2 CBC/BMP Laboratory Tests 07/14/21 21:34 Steroid Therapy Steroid Therapy: No Vaginal Examination Dilation: None Assessment Variability: Moderate Accelerations: Positive Decelerations: None Tocometer Contractions: No Assessment/Plan Assessment 35 yo female at 32 2/7 weeks gestation by LMP c/w 9 week ultrasound (EDC=09/06/2020) presents presents with preeclampsia including severe features. Plan Admit and orient. Still Operator Batch Or Continuous and consent. Check labs to assess status of preeclampsia. Blood pressure management Antepartum steroids if possible. Delivery as indicated by clinical status CLEMENTE HARDY MD Jul 15, 2021 01:33
[2021-07-15] MEDS ORDERED: PHYTONADIONE 1 MG/0.5 ML SYRINGE (J3430) IM ONE (01:40)
[2021-07-15] MEDS ORDERED: ERYTHROMYCIN OPHTH OINT OU ONE (01:40)
[2021-07-15] MEDS ORDERED: D10W 1,000 ML IV SCH (01:40)
--- NOTE | 2021-07-15 01:41 | ROOPDOC ---
[facility] Report Of Operation Report of Operation DATE OF PROCEDURE: 07/14/21 Report of operation Preoperative diagnosis:32 2/7 weeks, HELLP Syndrome Postoperative diagnosis:same Procedure: Primary low transverse section Surgeon: Clemente Hardy M.D. Asst.: John Godinez DO EBL: 800 ml. Urine output: 100 mL's. Findings: 3 lbs. 3 oz. (1452 g) male , breech presentation, 's and normal uterus, fallopian tubes, ovaries. Operative summary: Patient taken to the operating room where general endotracheal anesthesia was induced. She was prepped and draped in a sterile fashion in the supine position. A Rangel catheter was placed. A Pfannenstiel skin incision was made with scalpel. Fascia was incised and extended bilaterally. The peritoneal cavity was entered. A Mobius retractor was placed. A bladder flap was created. A curvilinear incision was made in lower uterine segment until Clear fluid was noted. The incision was extended manually. The infant was delivered from the breech position without difficulty. Cord was doubly clamped and cut. The infant was handed to the awaiting senior it assistant. The placenta was expressed. Uterus was closed with O-Vicryl in a running locked fashion. A second imbricating layer of Vicryl was placed. Generalized oozing was encountered from both the uterine incision and subcutaneous tissue presumably due to her low platelet counts. Multiple sutures as well as good surgical technique help to stop any bleeding. Peritoneum was closed with 2-0 Vicryl a running fashion. Fascia was closed with 0 Vicryl in running fashion. Skin was closed 4-0 Monocryl subcuticular sutures. Sponge, instrument and needle counts were correct. John Godinez DO, assisted with all aspects of the procedure. He helped each layer of the incision and deliver the fetus. CLEMENTE HARDY MD Jul 15, 2021 01:41
[2021-07-15] MEDS: PERCOCET 5MG/325MG TAB PO PRN ×4 (01:51→21:30)
[2021-07-15] MEDS: MAG Sulf (OBGYN) 20GM/500ML 20,000 MG in IV 1 EA IV SCH ×2 (02:01→11:13)
[2021-07-15] MEDS ORDERED: LABETALOL 100MG/20ML VIAL IV STA (02:07)
[2021-07-15] MEDS: PRENATAL VITAMINS CHEWABLE TABLET PO SCH (09:19)
[2021-07-15 10:17] LABS: MEAN CORPUSCULAR HEMOGLOBIN 29.2 pg (27.0-33.0); MEAN CORPUSCULAR HGB CONC 33.3 g/dl (32.0-36.5); MEAN CORPUSCULAR VOLUME 87.7 fl (80.0-96.0); RED BLOOD COUNT 3.42 10^6/uL (4.00-5.40); WHITE BLOOD COUNT 23.8 10^3/uL (4.0-10.0)
[2021-07-15 10:19] LABS: PLATELET COUNT, AUTOMATED 72 10^3/uL (150-450)
[2021-07-15 11:11] LABS: ALT/SGPT 135 U/L (12-78); BILIRUBIN,TOTAL 0.5 MG/DL (0.2-1.0); CREATININE FOR GFR 0.99 MG/DL (0.55-1.30); GLOMERULAR FILTRATION RATE > 60.0 (>60); LDH LACTATE DEHYDROGENASE 328 U/L (84-246); URIC ACID 7.2 MG/DL (2.6-6.0)
[2021-07-15] MEDS ORDERED: OXYC1TAB23 PO (15:18)
[2021-07-15 16:00] LABS: HEMATOCRIT 33.2 % (36.0-47.0); HEMOGLOBIN 10.4 g/dl (12.0-15.5); MEAN CORPUSCULAR HEMOGLOBIN 29.6 pg (27.0-33.0); MEAN CORPUSCULAR HGB CONC 31.3 g/dl (32.0-36.5); MEAN CORPUSCULAR VOLUME 94.6 fl (80.0-96.0); RED BLOOD COUNT 3.51 10^6/uL (4.00-5.40); WHITE BLOOD COUNT 21.2 10^3/uL (4.0-10.0)
[2021-07-15 16:34] LABS: ALT/SGPT 122 U/L (12-78); BILIRUBIN,TOTAL 0.3 MG/DL (0.2-1.0); CREATININE FOR GFR 0.96 MG/DL (0.55-1.30); GLOMERULAR FILTRATION RATE > 60.0 (>60); LDH LACTATE DEHYDROGENASE 313 U/L (84-246); PLATELET COUNT, AUTOMATED 60 10^3/uL (150-450); URIC ACID 6.9 MG/DL (2.6-6.0)
[2021-07-15 21:33] LABS: HEMATOCRIT 26.8 % (36.0-47.0); HEMOGLOBIN 9.1 g/dl (12.0-15.5); MEAN CORPUSCULAR HEMOGLOBIN 29.6 pg (27.0-33.0); MEAN CORPUSCULAR VOLUME 87.3 fl (80.0-96.0); PLATELET COUNT, AUTOMATED 107 10^3/uL (150-450); RED BLOOD COUNT 3.07 10^6/uL (4.00-5.40); WHITE BLOOD COUNT 26.2 10^3/uL (4.0-10.0)
[2021-07-15 22:06] LABS: ALT/SGPT 109 U/L (12-78); BILIRUBIN,TOTAL 0.3 MG/DL (0.2-1.0); CREATININE FOR GFR 0.83 MG/DL (0.55-1.30); GLOMERULAR FILTRATION RATE > 60.0 (>60); LDH LACTATE DEHYDROGENASE 280 U/L (84-246); URIC ACID 7.2 MG/DL (2.6-6.0)
[2021-07-16] VITALS (16 sets, daily range): BP systolic 134–179; BP diastolic 65–85
[2021-07-16] MEDS: PERCOCET 5MG/325MG TAB PO PRN ×3 (04:01→17:21)
[2021-07-16 08:57] LABS: HEMATOCRIT 28.3 % (36.0-47.0); HEMOGLOBIN 9.3 g/dl (12.0-15.5); MEAN CORPUSCULAR HEMOGLOBIN 29.4 pg (27.0-33.0); MEAN CORPUSCULAR HGB CONC 32.9 g/dl (32.0-36.5); MEAN CORPUSCULAR VOLUME 89.6 fl (80.0-96.0); PLATELET COUNT, AUTOMATED 122 10^3/uL (150-450); RED BLOOD COUNT 3.16 10^6/uL (4.00-5.40); WHITE BLOOD COUNT 22.6 10^3/uL (4.0-10.0)
[2021-07-16] MEDS: PRENATAL VITAMINS CHEWABLE TABLET PO SCH (09:12)
[2021-07-16] MEDS: IBUPROFEN 800 MG TAB PO PRN ×2 (09:13→15:01)
[2021-07-16 09:22] LABS: ALT/SGPT 86 U/L (12-78); BILIRUBIN,TOTAL 0.3 MG/DL (0.2-1.0); CREATININE FOR GFR 0.96 MG/DL (0.55-1.30); GLOMERULAR FILTRATION RATE > 60.0 (>60); LDH LACTATE DEHYDROGENASE 288 U/L (84-246); URIC ACID 7.2 MG/DL (2.6-6.0)
--- NOTE | 2021-07-16 12:01 | IPNPDOC ---
Progress Note Date of Service: Jul 16, 2021 Progress Note SUBJECT: Patient is a 35-year-old G 5 P 2123 status post uncomplicated primary section at 32-2/7 weeks' doing well day #2. She has been ambulating, has not voided spontaneously. Tolerating regular diet. Reports lochia is like a normal period. Patient is ambulating well. Reports some cramping, moderately controlled with medication. OBJECTIVE: VITAL SIGNS: Within normal limits, afebrile. Alert and oriented times three. Breath sounds clear to auscultation. Heart rate: Regular rate and rhythm, no murmurs, rubs or gallops. Abdomen: Fundus firm at U-2. Soft, appropriately tender to palpation Minimal to moderate lochia. ASSESSMENT: Patient is a 30-year-old G 5 P 2123 status post uncomplicated primary section after presenting to labor and delivery with headaches and vision changes, received a diagnosis of HELLP syndrome. Doing well on day 2. Vitals within normal limits, afebrile, hemodynamically stable with no evidence of infection. PLAN: 1. Status post transfusion of magnesium sulfate 2. Schedule Tylenol and Motrin for pain. Oxycodone as needed 3. Encourage breast feeding and ambulation. VS, I&O, 24H, Fishbone Vital Signs/I&O Vital Signs Date Time Temp Pulse Resp B/P (MAP) Pulse Ox O2 Delivery O2 Flow Rate FiO2 07/16/21 11:29 18 07/16/21 11:28 98.1 72 150/72 (98) 07/15/21 22:00 Room Air 07/15/21 21:30 99 07/15/21 00:35 10.0 I&O- Last 24 Hours up to 6 AM 07/16/21 05:59 Intake Total 2677.9 ml Output Total 1740 ml Balance 937.9 ml Laboratory Data 24H LABS Laboratory Tests 2 07/15/21 12:11: Magnesium Level 7.1*H 07/15/21 15:39: Nucleated Red Blood Cells % (auto) 0.1H, Glomerular Filtration Rate > 60.0, Uric Acid 6.9H, Total Bilirubin 0.3, Aspartate Amino Transf (AST/SGOT) 95H, Alanine Aminotransferase (ALT/SGPT) 122H, Lactate Dehydrogenase 313H 07/15/21 21:23: Nucleated Red Blood Cells % (auto) 0.2H, Glomerular Filtration Rate > 60.0, Uric Acid 7.2H, Total Bilirubin 0.3, Aspartate Amino Transf (AST/SGOT) 81H, Alanine Aminotransferase (ALT/SGPT) 109H, Lactate Dehydrogenase 280H 07/16/21 08:47: Nucleated Red Blood Cells % (auto) 0.2H, Glomerular Filtration Rate > 60.0, Uric Acid 7.2H, Total Bilirubin 0.3, Aspartate Amino Transf (AST/SGOT) 54H, Alanine Aminotransferase (ALT/SGPT) 86H, Lactate Dehydrogenase 288H CBC/BMP Laboratory Tests 07/15/21 15:39 07/15/21 21:23 07/16/21 08:47 JOEY MACHADO MD Jul 16, 2021 12:01
[2021-07-16] MEDS ORDERED: BOOSTRIX/ADACEL VACCINE (DIPHTH/PERTUSS/ACELL/TETANUS) 0.5ML SYR IM ONE (16:00)
[2021-07-16] MEDS: NIFEdipine 30 MG XL TAB PO SCH (21:16)
[2021-07-17] VITALS (7 sets, daily range): BP systolic 132–173; BP diastolic 66–82
[2021-07-17] MEDS: PERCOCET 5MG/325MG TAB PO PRN ×4 (02:37→19:44)
[2021-07-17] MEDS: PRENATAL VITAMINS CHEWABLE TABLET PO SCH (07:55)
[2021-07-17] MEDS: IBUPROFEN 800 MG TAB PO PRN ×2 (11:26→21:41)
--- NOTE | 2021-07-17 13:21 | IPNPDOC ---
Progress Note Date of Service: Jul 17, 2021 Day#: 3 Progress Note SUBJECT: Uche is a 35-year-old female who had a primary section due to breech presentation and HELLP. Last night she was placed on Nifedipine due to elevated blood pressures. She denies preeclamptic symptoms. She reports her pain has gotten better. She is pumping without any issues. Reports vaginal bleeding is minimal. Is ambulating without any issues and voiding. Baby is in NICU due to prematurity. OBJECTIVE: VITAL SIGNS: See below. Labs: platelets are improving. Alert and oriented times three. Sitting up in bed. Does not appear to be in any distress. Respiratory: regular rate without use of accessory muscles. Abdomen: Fundus firm. Dressing is intact. Minimal lochia. ASSESSMENT: Day 3 postoperative, HELLP PLAN: 1. Patient was started on Nifedipine last night and seems to be responding well to this. 2. Given her blood pressures and just starting this medication we will continue to monitor her BPs. 3. Anticipate discharge to home tomorrow. VS, I&O, 24H, Fishbone Vital Signs/I&O Vital Signs Date Time Temp Pulse Resp B/P (MAP) Pulse Ox O2 Delivery O2 Flow Rate FiO2 07/17/21 10:13 98.4 98 18 132/66 (88) 96 Room Air 07/15/21 00:35 10.0 I&O- Last 24 Hours up to 6 AM 07/17/21 05:59 Intake Total 1532 ml Output Total 1425 ml Balance 107 ml CAROLYNE SAMANO CNM Jul 17, 2021 13:21
[2021-07-17] MEDS: NIFEdipine 30 MG XL TAB PO SCH (21:22)
[2021-07-18] VITALS (7 sets, daily range): BP systolic 130–161; BP diastolic 70–90
[2021-07-18] MEDS: PRENATAL VITAMINS CHEWABLE TABLET PO SCH (07:42)
[2021-07-18] MEDS: PERCOCET 5MG/325MG TAB PO PRN ×2 (07:43→16:11)
[2021-07-18] MEDS: IBUPROFEN 800 MG TAB PO PRN ×2 (09:20→20:21)
[2021-07-18] MEDS: NIFEdipine 30 MG XL TAB PO SCH (20:22)
--- NOTE | 2021-07-18 21:01 | IPNPDOC ---
Text Note Date of Service The patient was seen on 07/18/21. NOTE S: Still with some abdominal pain O: AVSS NAD Abd: NT, dressing c/d/i ext: NT A/P POD#4 s/p section for HELLP syndrome at 32 weeks Continue management in hospital due to elevated BP's Continue Nifedipine XR 30 mg daily Baby transferred t [facility] Anticipate discharge tomorrow VS,Fishbone, I+O VS, Fishbone, I+O Vital Signs Date Time Temp Pulse Resp B/P (MAP) Pulse Ox O2 Delivery O2 Flow Rate FiO2 07/18/21 20:22 150/86 07/18/21 18:16 98.8 88 18 Room Air 07/18/21 06:00 98 07/15/21 00:35 10.0 CLEMENTE HARDY MD Jul 18, 2021 21:01
[2021-07-19] VITALS (9 sets, daily range): BP systolic 140–165; BP diastolic 76–90
[2021-07-19] MEDS: PRENATAL VITAMINS CHEWABLE TABLET PO SCH (08:12)
[2021-07-19] MEDS: IBUPROFEN 800 MG TAB PO PRN ×2 (08:13→16:33)
[2021-07-19 09:01] LABS: HEMATOCRIT 27.6 % (36.0-47.0); HEMOGLOBIN 8.9 g/dl (12.0-15.5); MEAN CORPUSCULAR HEMOGLOBIN 29.5 pg (27.0-33.0); MEAN CORPUSCULAR HGB CONC 32.2 g/dl (32.0-36.5); MEAN CORPUSCULAR VOLUME 91.4 fl (80.0-96.0); PLATELET COUNT, AUTOMATED 355 10^3/uL (150-450); RED BLOOD COUNT 3.02 10^6/uL (4.00-5.40); WHITE BLOOD COUNT 20.4 10^3/uL (4.0-10.0)
[2021-07-19] MEDS: PERCOCET 5MG/325MG TAB PO PRN ×2 (13:03→21:52)
--- NOTE | 2021-07-19 17:26 | IPNPDOC ---
Progress Note Date of Service: Jul 19, 2021 Day#: 5 Progress Note SUBJECT: Uche is a 35-year-old female who had a primary section due to HELLP. She denies abnormal odor to vaginal bleeding. Denies dysuria or back pain. Denies SOB. But at the end of the day reports some heaviness in chest. Reports pain has improved everyday, especially on her abdomen. She is pumping and producing a large amount of breast milk. She denies body aches and chills. Denies signs of preeclampsia. Reports she is ambulating, voiding and eating a regular diet without issues. She has a low grade fever Thursday and that was temporal and not checked with oral. OBJECTIVE: VITAL SIGNS: See below. BP stable in 150's systolic with Nifedipine. Alert and oriented times three. Sitting up in bed. Does not appear to be in any distress. Breasts: no erythema, rashes, or pain noted on nipples or breasts bilaterally. Denies pain with palpation. Respiratory: Right lower and mid lobes are clear to auscultation. Left mid lobe with some crackles. Heart rate: Regular rate and rhythm, no murmurs, rubs or gallops. Abdomen: Fundus firm. Dressing removed today and incision is approximated without erythema or drainage. Tender with palpation but patient reports her abdominal tenderness is much better and improved compared to what it was previously. Scant lochia. Extremities: Bilateral 1 to 2+ pitting edema in lower legs and feet note. No clonus. 2+ reflexes in patella and same reflexes noted in brachial area. No pain with palpation of calves bilaterally. ASSESSMENT: Day 5 postoperative from section, HELLP syndrome PLAN: 1. While patient is here she needs to use incentive spirometer every hour while awake. Chest x-ray ordered 2. She is to follow-up in the office on Thursday or Thursday for a BP check, 2 weeks for incision check and 6-8 weeks for . 3. Continue with Nifedipine 30 mg XL. 4. Extensive education done on preeclamptic symptoms, DVT, pulmonary embolism, infection, cleaning incision, mastitis, endometritis, and depression, pelvic rest, and pain management. 5. Consider discharge to home tonight or in the morning if everything is negative. VS, I&O, 24H, Fishbone Vital Signs/I&O Vital Signs Date Time Temp Pulse Resp B/P (MAP) Pulse Ox O2 Delivery O2 Flow Rate FiO2 07/19/21 16:41 99.3 07/19/21 14:32 152/88 (109) 07/19/21 14:00 97 100 07/19/21 13:46 18 07/19/21 10:00 Room Air 07/15/21 00:35 10.0 Vital Signs Label Value Date Time Patient Temperature 98.9 degrees F 07/19/21 0200 Temperature Source Temporal 07/19/21 0200 Pulse 101 07/19/21 0200 Respiratory Rate 18 bpm 07/19/21 0200 Blood Pressure Assessment 142/76 (98) 07/19/21 0200 Source Manual Cuff/Auscultation Bedside Pulse Oximetry 98 % 07/19/21 0200 Laboratory Data 24H LABS Laboratory Tests 2 07/19/21 08:43: Nucleated Red Blood Cells % (auto) 0.4H CBC/BMP Laboratory Tests 07/19/21 08:43 Item Value Date Time White Blood Count 22.6 10^3/uL H 07/16/21 0847 Red Blood Count 3.16 10^6/uL L 07/16/21 0847 Hemoglobin 9.3 g/dl L 07/16/21 0847 Hematocrit 28.3 % L 07/16/21 0847 Mean Corpuscular Volume 89.6 fl 07/16/21 0847 Mean Corpuscular Hemoglobin 29.4 pg 07/16/21 0847 Mean Corpuscular Hemoglobin Concent 32.9 g/dl 07/16/21 0847 Red Cell Distribution Width 16.3 % H 07/16/21 0847 Platelet Count 122 10^3/uL L 07/16/21 0847 Nucleated Red Blood Cells % (auto) 0.2 % H 07/16/21 0847 Microbiology Microbiology 07/19/21 Urine Culture, Received Pending CAROLYNE SAMANO CNM Jul 19, 2021 17:26
[2021-07-19] MEDS: NIFEdipine 30 MG XL TAB PO SCH (20:52)
[2021-07-19] MEDS ORDERED: COLA100C5 PO (21:28)
[2021-07-19] MEDS ORDERED: IBUP80TA PO (21:28)
[2021-07-19] MEDS ORDERED: NIFE1TAB52 PO (21:28)
--- NOTE | 2021-07-19 23:47 | REPVR ---
PROCEDURE INFORMATION: Exam: XR Chest Exam date and time: 07/19/2021 10:38 PM Age: 35 years old Clinical indication: Other: Postoperative, chest tightness, hellp TECHNIQUE: Imaging protocol: XR of the chest. Views: 2 views. COMPARISON: No relevant prior studies available. FINDINGS: Lungs: Degree of inflation of the lungs is normal. No evidence of pulmonary edema. No focal airspace process. No concerning parenchymal lung mass. Pleural spaces: No pleural effusion or pneumothorax. Heart/Mediastinum: Cardiac silhouette appears normal. No mediastinal adenopathy or hilar mass. Bones/joints: Osseous structures show no acute or concerning abnormality. IMPRESSION: No active or focal cardiopulmonary process. Electronically signed by: Trae Sharp On 07/19/2021 23:47:12 PM
[2021-07-20 00:03] LABS: RSV AMPLIFICATION NEGATIVE (NEGATIVE)
[2021-07-20 02:00] VITALS: BP 154/92
[2021-07-20] MEDS: IBUPROFEN 800 MG TAB PO PRN (05:26)
[2021-07-20 06:00] VITALS: BP 156/92
[2021-07-20] MEDS: PRENATAL VITAMINS CHEWABLE TABLET PO SCH (08:53)
[2021-07-20 10:00] VITALS: BP 152/58
--- NOTE | 2021-07-20 10:50 | DS.PDOC ---
Discharge Summary General Date of Admission Jul 14, 2021 at 20:43 Date of Discharge July 20, 2021 Attending Physician: CLEMENTE HARDY MD Discharge Summary PROCEDURES PERFORMED DURING STAY: 1. Primary section ADMITTING DIAGNOSES: 1. HELLP syndrome/preeclampsia with severe features DISCHARGE DIAGNOSES: 1. HELLP syndrome. COMPLICATIONS/CHIEF COMPLAINT: Headache/Vision Change. HISTORY OF PRESENT ILLNESS: HISTORY OF PRESENT ILLNESS: 35 yo female at 32 2/7 weeks gestation by LMP c/w 9 week ultrasound (EDC=09/06/2020) presents to triage with generalized swelling in her hands, feet, and face for the past 2 days. She developed a severe headache over the last 24 hours that became worse. Headache did not respond to Tylenol. She also had vision changes including seeing spots in front of her eyes. She was diagnosed with HELLP syndrome remote from delivery. She underwent a primary section under general anesthesia, productive of live born male , weight was 1452 g or 3 lbs. 3 oz. Estimated blood loss 800ml. Postoperatively, patient continued to improve. She remained hemodynamically stable. Her platelets and her lab value improved. Her blood pressure medications were titrated to reduce her blood pressures to mild to normal range. On postoperative day #5 she had a mild fever of 100.4. She was examined and was worked up with no findings to include chest x-ray, uri ne, heart lung exam, uterus incision, DVT and breast exam. Patient remained afebrile for greater than 24 hours and after meeting all discharge criteria versus discharge home 1 postoperative day #6. DISCHARGE MEDICATIONS: Please see below. ALLERGIES: Please see below. PHYSICAL EXAMINATION ON DISCHARGE: VITAL SIGNS: Please see below. GENERAL: No distress HEENT: WNL ABDOMINAL EXAMINATION: Fundus firm. Dressing intact EXTREMITIES: Equal strength and motion SKIN: Intact NEUROLOGICAL EXAMINATION: Grossly intact PSYCHIATRIC EXAMINATION: Appropriate LABORATORY DATA: Please see below. PROGNOSIS: Good ACTIVITY: As tolerated. Pelvic rest. DIET: As tolerated DISCHARGE PLAN: Discharge today. DISPOSITION: Home DISCHARGE INSTRUCTIONS: 1. Pelvic rest. Continue vitamins. Medications as ordered. Call with fever, nausea, vomiting, chills, foul lochia, wound exudate or evidence infection. RTO early next week for blood pressure check. DISCHARGE CONDITION: Stable Vital Signs/I&Os Vital Signs Date Time Temp Pulse Resp B/P (MAP) Pulse Ox O2 Delivery O2 Flow Rate FiO2 07/20/21 06:00 100.2 100 18 156/92 (113) 99 Room Air 07/19/21 20:30 Laboratory Data Labs 24H Laboratory Tests 2 07/19/21 23:23: Coronavirus (COVID-19)(PCR) NEGATIVE, Influenza Type A (RT-PCR) NEGATIVE, Influenza Type B (RT-PCR) NEGATIVE, Respiratory Syncytial Virus (PCR) NEGATIVE Microbiology Microbiology 07/19/21 Urine Culture - Final, Complete Discharge Medications Scheduled Multivit/Min/Pren/Fol Ac/Iron ([place] 28-0.8 mg) 1 Tab Tab, 1 TAB PO DAILY, (Reported) Nifedipine (Nifedipine ER) 30 Mg Tab.er.24, 30 MG PO DAILY@2100 Scheduled PRN Docusate Sodium (Colace) 100 Mg Capsule, 100 MG PO BIDP PRN for CONSTIPATION Ibuprofen (Ibuprofen) 800 Mg Tablet, 800 MG PO Q8HP PRN for PAIN LEVEL 1-6 Oxycodone HCl/Acetaminophen (Oxycodone-Acetaminophen 5-325) 1 Each Tablet, 1 TAB PO TIDP PRN for pain Allergies Coded Allergies: Sulfa (Sulfonamide Antibiotics) (Verified Allergy, Mild, HIVES, 07/14/21) JAREN BALDERAS MD. Jul 20, 2021 10:50
== END 2021-07-20 11:51 | disposition home or self-care (01) | DRG 540 ==
LOC: M LDO 20:07 → M LDI 20:43 → M OBS 07-16 17:19
PROVIDERS: ADMIT Specialist; ATTEND Specialist
PROC: 10D00Z1 Extraction of Products of Conception, Low, Open Approach (ICD-10-PCS; principal; 2021-07-14)
DX: O14.24 HELLP syndrome, complicating childbirth (principal); Z3A.32 32 weeks gestation of pregnancy; Z37.0 Single live birth; O32.1XX0 Maternal care for breech presentation, not applicable or unspecified

== ENCOUNTER → 2022-01-15 | Outpatient (REF) ==
[~2022-01-15] MED LIST changes: +COLA100C5 PO; +IBUP80TA PO; +NIFE1TAB52 PO; +OXYC1TAB23 PO
== END ==
LOC: M LAB 11:57
PROVIDERS: ATTEND Nurse Practitioner Adult Health
DX: Z02.1 Encounter for pre-employment examination (principal)

== ENCOUNTER → 2022-02-26 | Outpatient (REF) | payer OTHER ==
[2022-02-26 13:12] LABS: BASO # 0.1 10^3/uL (0.0-0.2); BASO % 1.1 % (0.0-1.0); EOS # 0.2 10^3/uL (0.0-0.5); EOS % 2.2 % (0.0-3.0); HEMATOCRIT 43.7 % (36.0-47.0); HEMOGLOBIN 13.7 g/dl (12.0-15.5); LYMPH # 2.4 10^3/uL (1.5-5.0); LYMPH % 24.9 % (24.0-44.0); MEAN CORPUSCULAR HGB CONC 31.4 g/dl (32.0-36.5); MEAN CORPUSCULAR VOLUME 83.1 fl (80.0-96.0); MONO # 0.6 10^3/uL (0.0-0.8); MONO % 6.7 % (2.0-8.0); NEUTROPHILS # 6.1 10^3/uL (1.5-8.5); NEUTROPHILS % 64.9 % (36.0-66.0); PLATELET COUNT, AUTOMATED 276 10^3/uL (150-450); RED BLOOD COUNT 5.26 10^6/uL (4.00-5.40); WHITE BLOOD COUNT 9.5 10^3/uL (4.0-10.0)
[2022-02-26 13:34] LABS: ALBUMIN 3.8 GM/DL (3.2-5.2); ALT/SGPT 22 U/L (12-78); BILIRUBIN,TOTAL 0.7 MG/DL (0.2-1.0); BLOOD UREA NITROGEN 15 MG/DL (7-18); CALCIUM LEVEL 9.5 MG/DL (8.5-10.1); CARBON DIOXIDE LEVEL 23 MEQ/L (21-32); CHLORIDE LEVEL 112 MEQ/L (98-107); CHOLESTEROL LEVEL 178 MG/DL (<200); CHOLESTEROL RISK RATIO 3.178 (<5); CREATININE FOR GFR 0.82 MG/DL (0.55-1.30); GLOMERULAR FILTRATION RATE > 60.0 (>60); GLUCOSE, FASTING 91 MG/DL (70-100); HDL CHOLESTEROL 56 MG/DL (>40); LDL CHOLESTEROL 112 MG/DL (<100); NON-HDL-C 122 MG/DL; POTASSIUM SERUM 4.1 MEQ/L (3.5-5.1); SODIUM LEVEL 141 MEQ/L (136-145); TOTAL PROTEIN 7.1 GM/DL (6.4-8.2); TRIGLYCERIDES LEVEL 49 MG/DL (<150)
[2022-02-26 14:00] LABS: TOTAL 25(OH) VITAMIN D 25.1 NG/ML (30.0-100.0)
== END ==
LOC: M SFHCADAM 08:42
PROVIDERS: ATTEND Physician Assistant Medical
DX: F41.1 Generalized anxiety disorder (principal); E66.01 Morbid (severe) obesity due to excess calories; F33.1 Major depressive disorder, recurrent, moderate

== ENCOUNTER → 2022-02-27 | Outpatient (REF) | LOC: M LABSMTC 09:30 | PROVIDERS: ATTEND Pediatrics | DX: Z20.822 Contact with and (suspected) exposure to COVID-19 (principal) ==

== ENCOUNTER → 2022-05-19 | Outpatient (CLI) | payer OTHER | LOC: M ADAMS 11:16 | PROVIDERS: ATTEND Physician Assistant | DX: S30.0XXA Contusion of lower back and pelvis, initial encounter (principal) ==

== ENCOUNTER → 2024-02-04 | Outpatient (REF) | payer BC, MEDICAID, OTHER ==
[2024-02-06 13:37] LABS: HPV APTIMA Not Detected (Not Detected)
== END ==
LOC: M SFHCWAGY 12:35
PROVIDERS: ATTEND Nurse Practitioner Family
DX: Z12.4 Encounter for screening for malignant neoplasm of cervix (principal)
CPT/HCPCS: 87624; G0123